=== PATIENT | male | born 1985 | race Caucasian/White ===

== ENCOUNTER 2018-05-31 18:53 | Emergency (ER) | payer BC, MEDICAID, OTHER ==
[~2018-05-31] VITALS: Ht 172.7 cm; Wt 81.6 kg
--- NOTE | 2018-05-31 19:00 | NUR ---
BIBRA 89 W C/O left lower extremity pain x 30 mins ago. TO ER BED 11, HOOKED TO MONITOR, AWAITING MD MARTINEZ
[2018-05-31] MEDS ORDERED: ACETAMINOPHEN ES 500 MG TABLET PO ONE (20:00)
[2018-05-31] MEDS ORDERED: IBUPROFEN 600 MG TABLET PO ONE (20:00)
--- NOTE | 2018-05-31 21:33 | NUR ---
ASSUMED CARE OF PT UPPON DISCHARGE. Patient discharged to home in stable condition. Written and verbal after care instructions given. Patient verbalizes understanding of instruction. STEADY GAIT NOTED UPON DISCHARGE WHILE USING CRUTHES. PT'S FAMILY MEMBER WALKING ALONGSIDE PT.
[2018-05-31 21:34] VITALS: BP 132/85
== END 2018-05-31 21:36 | disposition home or self-care (01) ==
LOC: ER 18:54
DX: S82.145A Nondisplaced bicondylar fracture of left tibia, initial encounter for closed fracture (principal); S80.02XA Contusion of left knee, initial encounter; W18.39XA Other fall on same level, initial encounter; Y93.39 Activity, other involving climbing, rappelling and jumping off; Y92.89 Other specified places as the place of occurrence of the external cause; Y99.8 Other external cause status
CPT/HCPCS: 29505; 73564; 99283; A4606; Z7610